=== PATIENT | female | born 1980 | race Caucasian/White ===

== ENCOUNTER 2018-10-10 08:24 | Outpatient (CLI) | payer OTHER ==
--- NOTE | 2018-10-10 09:17 | RAD ---
XR Lumbar Spine 2 Or 3 View HISTORY: Low back pain with bilateral thigh pain. COMPARISON: None. FINDINGS: There is a mild S-shaped scoliotic change in the spine. The vertebral bodies are normal in height. Minimal disc narrowing seen at L5-S1. Pedicles intact. IMPRESSION: Mild scoliosis and minimal disc narrowing at L5-S1
--- NOTE | 2018-10-10 09:39 | MRI ---
MRI Lumbar Spine WO Con HISTORY: Back pain with pain in both thighs. COMPARISON: None. FINDINGS: The vertebral bodies are normal in height. Disc desiccation changes are seen at L4-5 and L5 -S1. Modic type changes are seen at the L4-5 level. There is no significant periaortic adenopathy. The visualized portions of the kidneys appear unremarkable. T12-L1: Unremarkable. L1-2: Unremarkable. L2-3: Mild facet hypertrophic changes without canal or foraminal narrowing. L3-4: Degenerative facet changes are seen without canal or foraminal narrowing L4-5: A small central annular disc tear is seen. Borderline canal narrowing with degenerative facet a nd ligamentous hypertrophic change. No foraminal stenosis. L5-S1: Minimal disc bulge is seen at this level. Mild facet hypertrophic changes. No canal or foramin al narrowing. IMPRESSION: Borderline canal narrowing at L4-5 with a central annular disc tear.
== END 2018-10-10 08:25 | disposition home or self-care (01) ==
LOC: TBSIIMAG 08:24
PROVIDERS: ATTEND Neurological Surgery
DX: M54.16 Radiculopathy, lumbar region (principal); M41.9 Scoliosis, unspecified; M48.07 Spinal stenosis, lumbosacral region; M48.8X6 Other specified spondylopathies, lumbar region
CPT/HCPCS: 72100; 72148

== ENCOUNTER 2018-10-13 08:03 | Outpatient (CLI) | payer SELFPAY ==
--- NOTE | 2018-10-13 08:22 | RAD ---
Lumbar spine 3 views: 10/13/2018 COMPARISON: 09/30/2018 HISTORY: Lumbar radiculopathy, back pain FINDINGS: Lateral neutral, flexion, and extension views provided. Normal vertebral body height and al ignment noted on all 3 views. Lower lumbar spine facet hypertrophy present. IMPRESSION: No anterolisthesis or retrolisthesis noted on neutral, flexion, or extension lateral view s.
== END 2018-10-13 08:04 | disposition home or self-care (01) ==
LOC: TBSIIMAG 08:03
PROVIDERS: ATTEND Neurological Surgery
DX: M54.16 Radiculopathy, lumbar region (principal)
CPT/HCPCS: 72100

== ENCOUNTER 2018-12-22 10:57 | Outpatient (CLI) | payer OTHER ==
--- NOTE | 2018-12-22 11:26 | RAD ---
CHEST 2 VIEWS: HISTORY: Dyspnea. FINDINGS: Heart size is normal. The lungs are clear. No confluent pneumonia, overt edema, or pleural effusion . IMPRESSION: No acute intrathoracic disease. POS: OFF
== END 2018-12-22 10:58 | disposition home or self-care (01) ==
LOC: RAD 10:57
PROVIDERS: ATTEND Internal Medicine Critical Care Medicine
DX: R06.00 Dyspnea, unspecified (principal)
CPT/HCPCS: 71046

== ENCOUNTER 2018-12-26 11:28 | Outpatient (CLI) | payer OTHER ==
--- NOTE | 2018-12-26 13:28 | RAD ---
4 VIEWS RIGHT KNEE: Date: 12/26/18 COMPARISON: None. HISTORY: Right knee pain, crunching sounds with motion. FINDINGS: There is mild medial and lateral compartment narrowing involving the right knee. There is a corticate d osseous fragment superior to the medial tibial spine suggesting a remote corticated fracture with a n associated interarticular loose body. This loose body measures in the 4.0 mm range. There is mild osteophyte formation of the lateral femoral condyle. No knee joint effusion. No acute f racture or dislocation. IMPRESSION: There is a triangular 3-4 mm interarticular loose body just superior to the medial tibial plateau sug gesting a remote fracture. POS: OFF
== END 2018-12-26 11:29 | disposition home or self-care (01) ==
LOC: SCSRAD 11:28
PROVIDERS: ATTEND Family Medicine
DX: M25.561 Pain in right knee (principal)

== ENCOUNTER 2019-01-19 06:27 | Outpatient (CLI) | payer OTHER ==
[2019-01-19 09:55] LABS: BHCG - Serum Negative (NEGATIVE); Pregs Control Background? CLEAR/WHITE (CLR/WHITE); Pregs Control Bar Appear? YES (CONTROL BAR)
== END 2019-01-19 06:28 | disposition home or self-care (01) ==
LOC: LABBT 06:27 → EDSTATUS 09:15
PROVIDERS: ATTEND Obstetrics & Gynecology
DX: Z01.812 Encounter for preprocedural laboratory examination (principal); D25.9 Leiomyoma of uterus, unspecified; N92.0 Excessive and frequent menstruation with regular cycle; R10.2 Pelvic and perineal pain
CPT/HCPCS: 84703

== ENCOUNTER 2019-01-20 07:18 | Day surgery (SDC) | payer OTHER ==
[2019-01-12 16:09] VITALS: BMI 26.9
[2019-01-19 09:52] LABS: Mean Corpuscular HGB CONC 33.6 g/dL (32.0-36.0); Mean Corpuscular Volume 95.2 fL (78.0-98.0); Mean Platelet Volume 8.8 fL (7.4-10.4); Platelet Count 234 thou/uL (130-400); RBC Distribution Width 11.3 % (11.5-14.5); Red Blood Cell (RBC) Count 4.38 mill/uL (4.20-5.40); White Blood Cell (WBC) Count 5.3 thou/uL (4.8-10.8)
--- NOTE | 2019-01-19 11:55 | HP ---
She is scheduled for a robotic hysterectomy on 01/19/2019. HISTORY OF PRESENT ILLNESS: Ms. Gill is a 38-year-old white female with notable history of previous myomectomy for uterine fibroid, who has been having increasing pelvic pain and low back pain. She has severe dysmenorrhea, which exacerbates her chronic back pain issue related to herniated disk disease. She also has a long history of heavy menstrual cycles, which have been increased over the past year or two. She had a myomectomy performed while she was serving in the in [employer] in 2013. She does not desire fertility. She was assessed for the heavy bleeding and dysmenorrhea and underwent a pelvic ultrasound in my office this fall. She did have evidence of approximately 2.5 x 2.5 cm posterior uterine fibroid encroaching the uterine cavity. She also has had a history of previous hysterectomy in her teenage years for a large benign ovarian cyst. Presently, the adnexal structure was then evaluated. Sonographically, it did not show any abnormalities. OB HISTORY: She is normal . SOCIAL HISTORY: Nonsmoker. No excessive alcohol use. 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 PAST MEDICAL HISTORY: Otherwise, past medical history is unremarkable. CURRENT MEDICATIONS: Ibuprofen p.r.n. pain. ALLERGIES: SHE HAS NO KNOWN DRUG ALLERGIES. PHYSICAL EXAMINATION: VITAL SIGNS: Her height is 5 feet and 5 inches, weight 165, and BMI 27.5. Blood pressure 116/74, pulse 80, respirations 18, and O2 saturation on room air 99%. GENERAL: Well-developed, well-nourished white female, in no acute distress. HEENT: Within normal limits. CHEST: Clear to auscultation. HEART: Regular rate and rhythm. S1 and S2 heart sounds. No murmurs, rubs, or gallops. ABDOMEN: Soft, nontender, and nondistended with no palpable masses. PELVIC: Vulva and vagina had no lesions. Cervix had no visual lesions. Uterus was mildly enlarged, 6 to 8 week size and tender posteriorly on the location of the uterine fibroid. No adnexal masses or excessive tenderness were appreciated. ASSESSMENT: This is a 38-year-old white female, G0, with prior uterine myomectomy with recurrent uterine fibroids with symptoms of dysmenorrhea, menorrhagia, and then exacerbated for chronic back disease on her menstrual cycles. She does not desire fertility. She desires definitive surgical therapy. PLAN: To proceed with a robotic total laparoscopic hysterectomy plus or minus removal of her remaining ovary if it appears to be abnormal. Risks and benefits of this procedure have been discussed in detail. She is set for surgery 01/19/2019. Job ID: [id number]
[2019-01-20] MEDS ORDERED: Gabapentin 300 MG CAP ONE (08:21)
[2019-01-20] MEDS ORDERED: CeleCOXIB 100 MG CAP ONE (08:21)
[2019-01-20] MEDS ORDERED: Famotidine/PF 20 mg/2ml Vial ONE ×2 (08:22)
[2019-01-20] MEDS ORDERED: Bupivacaine HCl 0.5%/Epinephrine 1:200,000/PF 30 ml Vial ONE (11:09)
[2019-01-20] MEDS ORDERED: Fentanyl 100 MCG/2 ML VIAL ONE ×3 (11:15→14:20)
[2019-01-20] MEDS ORDERED: traMADol HCl 50 MG TAB PO PRN ×2 (13:16)
[2019-01-20] MEDS ORDERED: Bisacodyl 10 MG SUPP PR PRN (13:16)
[2019-01-20] MEDS ORDERED: diphenhydrAMINE 25 MG CAP PO PRN (13:16)
[2019-01-20] MEDS ORDERED: Promethazine HCl 25 MG/ML VIAL IM PRN ×2 (13:16→13:29)
[2019-01-20] MEDS ORDERED: Ondansetron PF 4 MG/2 ML Vial IVP PRN (13:16)
[2019-01-20] MEDS ORDERED: Zolpidem Tartrate 5 MG TAB PO PRN (13:16)
[2019-01-20] MEDS ORDERED: Simethicone Chewable 80 MG TAB PO PRN (13:16)
[2019-01-20] MEDS ORDERED: HYDROmorphone 2 MG/ML VIAL SLOW IVP PRN (13:29)
[2019-01-20] MEDS ORDERED: Ondansetron HCl/PF 4 MG/2 ML Vial IVP PRN (13:29)
[2019-01-20] MEDS ORDERED: Promethazine HCl 25 MG/ML VIAL SLOW IVP PRN (13:29)
[2019-01-20] MEDS ORDERED: Promethazine HCl 25 MG/ML VIAL ONE (14:29)
--- NOTE | 2019-01-20 15:07 | OP ---
DATE OF PROCEDURE: 01/20/2019 PREOPERATIVE DIAGNOSES: 1. A 38-year-old white female, G0 with history of previous uterine myomectomy. 2. Recurrent uterine fibroids. 3. Menorrhagia and dysmenorrhea. 4. Desires definitive surgical therapy. POSTOPERATIVE DIAGNOSES: 1. A 38-year-old white female, G0 with history of previous uterine myomectomy. 2. Recurrent uterine fibroids. 3. Menorrhagia and dysmenorrhea. 4. Desires definitive surgical therapy. PROCEDURES PERFORMED: 1. Robotic total laparoscopic hysterectomy with left salpingectomy. 2. Lysis of adhesions. PUBLIC SERVICE OFFICER SURGEON: Jerri Avelar PA-C ANESTHESIA: General endotracheal. ESTIMATED BLOOD LOSS: 25 mL. COMPLICATIONS: None. COUNTS: Correct x2. PATHOLOGY: Uterus, cervix, and left fallopian tube. FINDINGS: 1. The patient is status post previous operative right salpingo-oophorectomy. 2. Mildly enlarged uterus, multiple small uterine fibroids. 3. Normal-appearing left ovary. 4. Bladder was watertight to fluid distention greater than 300 mL postprocedure. 5. Bilateral ureteral peristalsis visualized postprocedure. DISPOSITION: Recovery room, stable. DESCRIPTION OF PROCEDURE: The patient previously received informed consent in regard to surgery. She was taken back to the operating room, where she received a general endotracheal anesthetic agent without complications. She was then placed in the dorsal lithotomy position with the use of Cade stirrups. She was then prepped and draped in usual sterile fashion. At this time, a Mclean catheter was placed and a side-arm speculum was also placed. The uterus sounded to 9 cm. A size 8-cm JEWELL uterine manipulator with a 4.0 cervical cup was placed in usual fashion. The speculum and tenaculum were then removed. Attention was then turned to the abdomen, where perspective trocar sites were infiltrated with 0.5% Marcaine with epinephrine. A 12-mm supraumbilical incision was made. Veress needle was entered into the peritoneal cavity. The patient's pressure was noted to be less than 5 mm. The patient's abdomen was insufflated with the patient's pressure of 15 with approximately 4.5 L of carbon dioxide gas. Veress needle was then removed. A 12-mm trocar was then placed through the incision site and the robotic laparoscope was introduced through trocar sleeve confirming proper entry. Additional bilateral lower quadrant 8-mm robotic trocars along with the right upper quadrant 11-mm supply assistant port was placed. The laparoscope had been introduced through the 12 mm trocar sleeve and the Endo Shear was placed through the left lower quadrant port. My supply assistant grasped some omental adhesions that were in the midline abdominal wall from the previous Pfannenstiel incision sites and these were taken down in a layering technique both sharply and bluntly through the omental areas coagulating any areas of oozing with EndoSure cautery. Once this had been done, the adhesions were out of the operative field site. We then placed the patient in deep Trendelenburg position and proceeded to dock the robot. I then broke scrub and proceeded to carry out the surgery from the operative console while my assistants remained at the bedside. The uterus was elevated from the pelvis. There was some noted filmy small bowel and omental adhesions in the posterior aspect of the uterus, most likely from the previous myomectomy. These were taken down in layering technique with monopolar scissors and bipolar fenestrated cautery grasping the filmy adhesions and finding windows of planes to dissect this to atraumatically release this from the posterior uterus, avoiding contact with the small bowel. Once this had been accomplished, the uterus was freed and lifted up from the pelvis. The right remnant of the utero-ovarian ligament and round ligament were then coagulated with bipolar fenestrated cautery and transected with monopolar scissors. The anterior leaf of the broad ligament was then entered. The vesicouterine peritoneal reflection was incised in a layering technique both sharply and bluntly dissecting the bladder atraumatically past the cervical vaginal angle and margin. The right uterine vessels were skeletonized and coagulated in the internal cervical os. The left fallopian tube was then grasped by my supply assistant to the fimbriae. The left ovary was inspected and appeared normal. The mesosalpinx under the fimbriae of the left fallopian tube was coagulated with bipolar fenestrated cautery, transected with monopolar serial scissors. Serial coagulation of the mesosalpinx and her tube were carried out with excision and removal of the left fallopian tube through my right upper quadrant supply assistant port. The left utero-ovarian ligaments were coagulated and transected. Serial coagulation of broad ligament hugging close to uterus was carried down until the left round ligament was reached. It was coagulated and transected, and again the anterior leaf of the broad ligament was entered and the vesicouterine peritoneum was incised and dissected in layering technique again way past the cervical vaginal margin. The uterine vessels again were skeletonized and they were coagulated in the internal cervical os region. The courses of the ureters had been identified, prior to this were noted to be well lateral and inferior to the operative sites. Prior to the colpotomy, the bladder was distended and noted to be watertight and the position of bladder was well below the intended colpotomy site. Monopolar scissors were then utilized to incise the vagina over the cervical cup from 12 o'clock to 3 o'clock and 12 o'clock to 9 o'clock position. The uterine vessels were coagulated at the 3 o'clock and 9 o'clock position during this process and the posterior colpotomy was completed from 6 o'clock to 3 o'clock and 6 o'clock to 9 o'clock position. The specimen was then delivered into the vaginal region. The vaginal cuff was then cauterized of any oozing areas with the bipolar fenestrated cautery after the monopolar scissors had been exchanged for a Jose Guadalupe needle driver license examiner. Once hemostasis over the vaginal cuff had been confirmed, the StrataFix suture was brought in by my supply assistant and the vaginal cuff was closed in full-thickness closure starting the right angle towards the left angle and back towards the midline, closing the cuff securely and hemostatically. The excess suture and needle were then excised and removed through the right upper quadrant supply assistant port. Pelvis was then irrigated and suctioned. All pedicle sites were confirmed to be hemostatic. Bilateral ureteral peristalsis was also visualized. We reinspected the omentum, where the previous adhesions had been removed and any areas of oozing were made hemostatic with bipolar fenestrated cautery. Once it has been confirmed, the robot was then undocked. Trocar sleeves were removed. A deep stitch of 0 Vicryl in a pursestring manner was placed in the fascial defect in the umbilical region. The remainder of trocar sites were closed with 4-0 Monocryl and Dermabond. The vaginal vault was inspected with a sponge stick and hemostasis was confirmed. The patient was awakened from anesthesia and transferred to recovery room in stable condition. Job ID: [id number]
[2019-01-20] MEDS ORDERED: Dexamethasone 20 MG/5 ML VIAL ONE (15:34)
[2019-01-20] MEDS ORDERED: Glycopyrrolate 0.2 MG/ML 5 ML SYRINGE ONE (15:34)
[2019-01-20] MEDS ORDERED: Rocuronium Bromide 10 MG/ML (10ML VIAL) ONE (15:34)
[2019-01-20] MEDS ORDERED: ePHEDrine 50 MG/ML VIAL ONE (15:34)
[2019-01-20] MEDS ORDERED: Ondansetron PF 4 MG/2 ML Vial ONE (15:34)
[2019-01-20] MEDS ORDERED: Ketorolac Tromethamine 30 MG/ML VIAL ONE (15:34)
[2019-01-20] MEDS ORDERED: Lidocaine 1% PF 5 ML VIAL ONE (15:34)
[2019-01-20] MEDS ORDERED: PROPOFOL 200 MG/20 ML VIAL ONE (15:34)
[2019-01-20] MEDS: Morphine 4 MG/ML VIAL SLOW IVP PRN ×2 (16:16→20:16)
[2019-01-20] MEDS: Ketorolac Tromethamine 30 MG/ML VIAL IVP SCH (18:02)
[2019-01-20] MEDS: Acetaminophen 1,000 MG in Premix Bag 1 BAG IVPB SCH (18:02)
[2019-01-20] MEDS: Sodium Chloride 0.9% 1,000 ML IV SCH (18:09)
[2019-01-21] MEDS: Ketorolac Tromethamine 30 MG/ML VIAL IVP SCH (00:26)
[2019-01-21] MEDS: Acetaminophen 1,000 MG in Premix Bag 1 BAG IVPB SCH ×2 (00:26→06:04)
[2019-01-21] MEDS: Morphine 4 MG/ML VIAL SLOW IVP PRN ×2 (00:32→06:47)
[2019-01-21] MEDS: Sodium Chloride 0.9% 1,000 ML IV SCH ×2 (03:35→09:44)
[2019-01-21 04:51] LABS: Hemoglobin 12.1 g/dL (12.0-16.0); Mean Corpuscular HGB CONC 34.3 g/dL (32.0-36.0); Mean Corpuscular Hemoglobin 32.3 pg (27.0-31.0); Mean Corpuscular Volume 94.2 fL (78.0-98.0); Mean Platelet Volume 7.8 fL (7.4-10.4); Platelet Count 200 thou/uL (130-400); RBC Distribution Width 11.2 % (11.5-14.5); Red Blood Cell (RBC) Count 3.76 mill/uL (4.20-5.40); White Blood Cell (WBC) Count 9.1 thou/uL (4.8-10.8)
[2019-01-21] MEDS ORDERED: Ibuprofen 800 MG TAB PO SCH (06:00)
--- NOTE | 2019-01-21 07:58 | PDOC.EVN ---
Event Note - Event Note Event Note: Tolerating siet. Ambulating. Voiding. Adequate pain control. O:AfVSS. HCT 35% ABDOMEN soft. Trochar sites c/d/i. EXT -Non tender A/P Post op day 1 from robotic tlh. Doing well. D/c home. Follow up in 2 and 6 weeks. pathology pending.
[2019-01-21 08:00] VITALS: BP 100/58; TEMP 99
--- NOTE | 2019-01-21 12:39 | DIS ---
DATE OF ADMISSION: 01/20/2019 DATE OF DISCHARGE: 01/21/2019 DATE OF SURGERY: 01/20/2019. DIAGNOSES: 1. Symptomatic uterine fibroids, menorrhagia, dysmenorrhea. 2. Prior myomectomy of the uterus. 3. History of previous right salpingo-oophorectomy. PROCEDURES PERFORMED: Robotic total laparoscopic hysterectomy with left salpingectomy. SUMMARY HOSPITAL COURSE: Ms. Gill is a 38-year-old white female, G0 with prior myomectomy and oophorectomy, who had continued menorrhagia and dysmenorrhea, was noted to have recurrence of uterine fibroids. She underwent definitive surgical therapy, robotic laparoscopic hysterectomy with laparoscopic salpingectomy. Postoperatively, the patient has done well. She is ambulating and voiding without difficulty, and tolerating diet. Pain control was adequate with oral medication. Hematocrit 35% on postop day #1. Vital signs remained stable at time of discharge, and she was discharged the morning of postop day #1. DISCHARGE MEDICATIONS: 1. Tramadol 50 mg q.6 hours p.r.n. pain. 2. [id number] ibuprofen 400 q.4 hours p.r.n. pain. FOLLOWUP: She is to follow up in 2 and 6 weeks postop. Pathology is pending at time of this discharge. Job ID: [id number]
== END 2019-01-21 10:21 | disposition home or self-care (01) ==
LOC: SDC 07:18 → 3SE 13:15 → SDC 01-21 10:21
PROVIDERS: ATTEND Obstetrics & Gynecology
PROC: 0UT64ZZ Resection of Left Fallopian Tube, Percutaneous Endoscopic Approach (ICD-10-PCS; principal; 2019-01-21)
PROC: 0UT94ZZ Resection of Uterus, Percutaneous Endoscopic Approach (ICD-10-PCS; principal; 2019-01-21)
DX: D25.9 Leiomyoma of uterus, unspecified (principal)
CPT/HCPCS: 36415; 85027; 86850; 86900; 86901; 88307; J0131; J0670; J0690; J1885; J2270; J2550; J3010; S0028

== ENCOUNTER 2020-01-04 08:52 | Outpatient (CLI) | payer OTHER ==
--- NOTE | 2020-01-04 09:36 | ULT ---
US Renal Bilateral STANDARD HISTORY: Hematuria COMPARISON: None. FINDINGS: The right kidney measures 9.4 cm in length and the left kidney measures 9.8 cm in length. No renal ma ss or hydronephrosis is seen. No shadowing calculi are noted. Cortical echogenicity and thickness is normal. The prevoid bladder volume is 77 cc with a postvoid residual of 7 cc. The urinary bladder is grossly unremarkable. IMPRESSION: No significant abnormalities are seen.
== END 2020-01-04 08:53 | disposition home or self-care (01) ==
LOC: BICULT 08:52
PROVIDERS: ATTEND Family Medicine
DX: R31.9 Hematuria, unspecified (principal)
CPT/HCPCS: 76770

== ENCOUNTER 2020-01-04 11:08 | Outpatient (CLI) | payer OTHER ==
[2020-01-05 15:29] LABS: SARS-CoV-2 MS2 Positive; SARS-CoV-2 N Gene Negative; SARS-CoV-2 S Gene Negative; SARS-CoV-2 by NAA Not Detected (NotDetected); SARS-CoV-2 orf1ab Negative
== END 2020-01-04 11:09 | disposition home or self-care (01) ==
LOC: LABBT 11:08
PROVIDERS: ATTEND Internal Medicine Critical Care Medicine
DX: G47.33 Obstructive sleep apnea (adult) (pediatric) (principal); Z20.828 Contact with and (suspected) exposure to other viral communicable diseases
CPT/HCPCS: 87635; U0003

== ENCOUNTER 2020-01-07 19:30 | Outpatient (CLI) | payer OTHER | END 2020-01-07 19:31 | disposition home or self-care (01) | LOC: SLEEPLAB 19:30 | PROVIDERS: ATTEND Internal Medicine Critical Care Medicine | DX: G47.33 Obstructive sleep apnea (adult) (pediatric) (principal); R53.83 Other fatigue; E66.9 Obesity, unspecified; R06.83 Snoring; G47.00 Insomnia, unspecified; G47.10 Hypersomnia, unspecified; Z68.26 Body mass index [BMI] 26.0-26.9, adult | CPT/HCPCS: 95810 ==

== ENCOUNTER 2022-07-09 08:15 | Outpatient (CLI) | payer OTHER | END 2022-07-09 08:16 | disposition home or self-care (01) | LOC: BICMAMMO 08:15 | PROVIDERS: ATTEND Internal Medicine | DX: Z12.31 Encounter for screening mammogram for malignant neoplasm of breast (principal) | CPT/HCPCS: 77063; 77067 ==

== ENCOUNTER 2023-01-17 11:21 | Emergency (ER) | payer OTHER ==
[2023-01-17 11:46] LABS: #Neutrophils 9.5 thou/uL (1.40-6.50); %Basophils 0.2 % (0.0-1.0); %Eosinophils 0.4 % (0.0-10.0); %Lymphocytes 6.8 % (21.0-51.0); %Monocytes 8.4 % (0.0-10.0); %Neutrophils 83.9 % (42.0-75.0); Hematocrit 38.8 % (36.0-47.0); Hemoglobin 13.1 g/dL (12.0-16.0); Mean Corpuscular HGB CONC 33.8 g/dL (32.0-36.0); Mean Corpuscular Hemoglobin 31.5 pg (27.0-31.0); Mean Corpuscular Volume 93.3 fl (78.0-98.0); Mean Platelet Volume 10.1 fL (7.4-10.4); Platelet Count 234 10x3/uL (130-400); RBC Distribution Width 12.7 % (11.5-14.5); Red Blood Cell (RBC) Count 4.16 mill/uL (4.20-5.40); White Blood Cell (WBC) Count 11.3 10x3/uL (4.8-10.8)
[2023-01-17] MEDS ORDERED: Ondansetron ODT 4 MG TAB ONE (11:55)
[2023-01-17 12:09] LABS: Bacteria/HPF None Seen HPF (None Seen); Bilirubin Negative (Negative); Blood, Urine 1+ (Negative); CAUTI Indications for Culture Pelvic or flank pain; Clarity Clear (Clear); Glucose, Urine (Dipstick) Normal (Negative); Ketone, Urine Trace mg/dL (Negative); Leukocyte Negative Leu/uL (Negative); Nitrite Negative (Negative); Protein, Urine (Dipstick) Negative (Neg-Trace); Specific Gravity, Urine 1.014 (1.002-1.036); Squamous Epithelial 0-3 HPF (0-3); Urobilinogen Normal mg/dL (Less than 2); WBC/HPF 0-3 HPF (0-3); pH, Urine 6.5 (5.0-9.0)
[2023-01-17 12:12] LABS: Urine Culture Reflex No No
[2023-01-17 12:20] LABS: ALT (SGPT) 33 U/L (8-55); AST (SGOT) 14 U/L (5-34); Albumin 4.6 g/dL (3.5-5.0); Alkaline Phosphatase 65 U/L (40-110); Anion Gap 13 mmol/L (10-20); BUN (Urea Nitrogen) 18 mg/dL (7.0-18.7); Bilirubin, Total 0.9 mg/dL (0.2-1.2); Calc. Creatinine Clearance 0 mL/min (70-130); Calcium 9.6 mg/dL (7.8-10.44); Carbon Dioxide 23 mmol/L (22-29); Chloride 104 mmol/L (98-107); Estimated GFR 72; Globulin 2.4 g/dL (2.4-3.5); Glucose 101 mg/dL (70-105); Lipase 29 U/L (8-78); Sodium 136 mmol/L (136-145)
[2023-01-17] MEDS ORDERED: Ketorolac Tromethamine 30 MG/ML VIAL ONE (12:23)
== END 2023-01-17 13:43 | disposition home or self-care (01) ==
LOC: ERS 11:21
DX: N13.2 Hydronephrosis with renal and ureteral calculous obstruction (principal)
CPT/HCPCS: 36415; 74019; 74177; 80053; 81001; 83690; 85025; 96372; J1885; Q0162

== ENCOUNTER 2024-03-04 09:03 | Outpatient (CLI) | payer OTHER | END 2024-03-04 09:04 | disposition home or self-care (01) | LOC: BICMAMMO 09:03 | PROVIDERS: ATTEND Internal Medicine | DX: Z12.31 Encounter for screening mammogram for malignant neoplasm of breast (principal) | CPT/HCPCS: 77063; 77067 ==